=== PATIENT | male | born 1935 | race Caucasian/White ===

== ENCOUNTER 2016-09-14 15:21 | Observation (INO) | payer MEDICARE, OTHER ==
[~2016-09-14] VITALS: Ht 172.7 cm; Wt 84.5 kg
[~2016-09-14 15:21] MED LIST: CARV25TA2 PO; CELE200C PO; CEPH500C PO; DIGO125T73 PO; FURO40TA4 PO; KEN1C EXT; LISI10TA PO; MULT-1073 PO; NIAC500T7 PO; NITR0.4T SL; OMEP40CA3 PO; POTA20TA16 PO; PRAM0.5T3 PO; RANI300C PO; SPIR25TA3 PO; TAMS0.4C98 PO; TRAM50TA2 PO; TRIA10.8 NOSTRIL; WARF5TAB7 PO; WARF7.5T4 PO; [UNRECOGNIZED DRUG - CODE] PO; [UNRECOGNIZED DRUG - OTHER] PO
[2016-09-14 15:38] VITALS: BP 84/54; PULSE 106; RESP 28; O2SAT 94
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
[2016-09-14] MEDS ORDERED: CALC600T12 PO (16:00)
[2016-09-14] MEDS ORDERED: CARV3.122 PO (16:00)
[2016-09-14] MEDS ORDERED: OMEP40CA36 PO (16:00)
[2016-09-14 16:29] LABS: EOSINOPHILS % (AUTO) 0.1 % (0-5); Platelet Count 222 bil/L (150-400)
[2016-09-14 16:32] LABS: BASOPHILS % (AUTO) 0.2 % (0-3); Mean Corpuscular Hemoglobin 34.2 pg (27.0-35.0); Mean Corpuscular Volume 100.9 fL (81-100); NEUTROPHILS % (AUTO) 85.9 % (40-74)
[2016-09-14 16:34] LABS: INR 1.25 ratio
[2016-09-14 16:50] LABS: TROPONIN T < 0.010 ug/L (0.0-0.011)
--- NOTE | 2016-09-14 17:17 | DRSVH ---
PROCEDURE: X-RAY CHEST ONE VIEW, PORTABLE ([id number]) INDICATIONS: ?hemoptysis TECHNIQUE: One view of the chest was acquired. COMPARISON: None. FINDINGS: Surgical changes and devices: Single lead pacemaker from a left is present. cardiac monitor technician leads are seen over the chest. There's been previous surgery involving the base of the neck on the left-hand t he central left side of the chest. Lungs and pleura: No pleural effusions or pneumothorax. Lungs are clear. Old scarring changes are p resent at the left costophrenic sulcus. Mediastinum: Mediastinal contours appear normal. Heart size is normal. Bones and chest wall: No suspicious bony lesions. Vertebroplasty is in the upper lumbar spine Overl vanessa soft tissues appear unremarkable. IMPRESSION: Acute disease is now seen in the AP portable chest. Source of hemoptysis is not identifie d. Dictated by: Neeraj Calderon M.D. on 09/14/2016 at 17:12 Approved by: Neeraj Calderon M.D. on 09/14/2016 at 17:15
--- NOTE | 2016-09-14 17:38 | DRSVH ---
PROCEDURE: CT ANGIO CHEST PULMONARY EMBOLISM ([id number]) INDICATIONS: hemoptysis TECHNIQUE: After the administration of intravenous contrast, 2 mm thick sections acquired from the pulmonary api larry to the posterior costophrenic angles. 3-dimensional maximum intensity projection (MIP) coronal a nd sagittal reformats were then acquired through the thorax. For radiation dose reduction, the follo wing was used: automated exposure control, adjustment of mA and/or kV according to patient size. COMPARISON: [facility], , CHEST 1VW (PORTABLE), 07/20/2014, 2:12. FINDINGS: Image quality: Excellent. Pulmonary arteries: Pulmonary arteries are normal in size, and demonstrate no intraluminal filling d efects to suggest central pulmonary embolism. Lungs and pleura: Lungs show small amount of airspace disease posteriorly in the right upper lobe an d atelectasis or small amount of air space disease in the posterior gutter. No pleural effusions or p neumothorax. Central and peripheral airways are patent. Mediastinum: Heart size is diffusely enlarged, without pericardial effusion. No mediastinal or alex r adenopathy. Thoracic aorta is normal in caliber and enhancement. Esophagus is normal in caliber, without hiatal hernia. Bones and chest wall: Pacemaker in the left upper chest. No suspicious bony lesions. Ribs and thorac ic spine appear intact throughout. . No axillary or supraclavicular adenopathy. Abdomen: Visualized upper abdominal solid organs appear normal in the early arterial phase of enhanc ement. There is a small to moderate-sized hiatal hernia. IMPRESSION: 1. No evidence for pulmonary embolus. 2. Air space disease in the right upper lobe. No evidence for m ass or embolus or endobronchial lesion. Question small amount of airspace disease or subsegmental ate lectasis in the posterior gutter inferiorly in the right chest. 2. Large heart without failure. Pacemaker in the left chest. 3. Small to moderate size hiatal hernia. Dictated by: Neeraj Calderon M.D. on 09/14/2016 at 17:29 Approved by: Neeraj Calderon M.D. on 09/14/2016 at 17:36
[2016-09-14 17:51] VITALS: BP 100/60; PULSE 75; RESP 21; O2SAT 96
[2016-09-14] MEDS ORDERED: cefTRIAXone Inj 2,000 MG in Dextrose 5% Minibag Plus 50 ML IV ONE (17:55)
[2016-09-14] MEDS ORDERED: Azithromycin Inj 500 MG in Dextrose 5% w/Vial Mate 250 ML IV ONE (17:55)
[2016-09-14] MEDS ORDERED: 0.9% Sodium Chloride 1,000 ML IV ONE (17:55)
[2016-09-14] MEDS ORDERED: Alum-Mag Hydrox-Simeth 30 mL Suspension PO PRN (18:35)
[2016-09-14] MEDS ORDERED: Ondansetron 2 mg/mL 2 mL Inj IVPUSH PRN (18:35)
[2016-09-14 19:05] VITALS: PULSE 79
[2016-09-14 19:20] VITALS: BP 103/69; PULSE 87; RESP 12; O2SAT 96
[2016-09-14] MEDS: 0.9% Sodium Chloride 1,000 ML IV SCH (19:23)
[2016-09-14] MEDS: Lactated Ringer's 1,000 ML IV SCH (19:26)
[2016-09-14] MEDS ORDERED: Albuterol 2.5 mg/3 mL Inhalation Solution NEB PRN (19:30)
[2016-09-14] MEDS ORDERED: Polyethylene Glycol (PEG) 17 Gm Powder PO PRN (19:30)
[2016-09-14 20:00] VITALS: PULSE 86
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
[2016-09-14] MEDS: Albuterol-Ipratropium 3 mL Inhalation Solution NEB SCH ×2 (20:30→23:24)
[2016-09-14] MEDS ORDERED: levoFLOXacin Inj 750 MG in IV Premix 1 EACH IV SCH (20:30)
[2016-09-14] MEDS: Potassium Chloride 20 mEq SR Tablet PO SCH (20:30)
--- NOTE | 2016-09-14 22:10 | NUR ---
Admit, activity and IV fluids. Patient was admitted to the [facility] shortly before the start of my shift. Admission process was completed and patient was settled into bed. Patient reports that he feels weaker than normal. Patient is a one person assist to use the bedside commode. Fall precautions are in place. Patient is running NS at 100ml/hr and is tolerating the fluids well. Patient is having good urine output.
[2016-09-14 23:34] VITALS: BP 124/78; PULSE 74; RESP 20; O2SAT 94
[2016-09-14 23:50] LABS: APPEARANCE,URINE CLEAR (CLEAR,HAZY); COLOR,URINE DARK YELLOW (YELLOW); OCCULT BLOOD,URINE NEGATIVE (NEGATIVE)
[2016-09-15] VITALS (12 sets, daily range): BP systolic 107–132; BP diastolic 57–77; PULSE 65–115; RESP 16–20; O2SAT 93–98
[2016-09-15 02:43] LABS: BASOPHILS % (AUTO) 0.3 % (0-3); EOSINOPHILS % (AUTO) 0.8 % (0-5); MONOCYTES % (AUTO) 8.4 % (4-12); Mean Corpuscular Hemoglobin 34.2 pg (27.0-35.0); NEUTROPHILS % (AUTO) 82.3 % (40-74); Platelet Count 214 bil/L (150-400)
[2016-09-15] MEDS: Albuterol-Ipratropium 3 mL Inhalation Solution NEB SCH ×5 (04:30→20:30)
[2016-09-15] MEDS: Lactated Ringer's 1,000 ML IV SCH (04:58)
[2016-09-15] MEDS: 0.9% Sodium Chloride 1,000 ML IV SCH (04:59)
[2016-09-15] MEDS: Pantoprazole 40 mg ER24 Tablet PO SCH (05:57)
[2016-09-15] MEDS: Fluticasone 0.05% 15 Spray/2 Gm 16 Gm Nasal Spray NASAL SCH (08:30)
[2016-09-15] MEDS ORDERED: Non-Formulary Medication (Ranitidine 300 MG) PO SCH (08:30)
--- NOTE | 2016-09-15 08:45 | NUR ---
Evaluation completed. Please go to "Notes" then click on "Assessments and Notes" (bottom left corner of screen). Then select appropriate discipline tab on top of screen.
[2016-09-15] MEDS: Potassium Chloride 20 mEq SR Tablet PO SCH ×2 (09:07→20:31)
[2016-09-15] MEDS: Calcium Carbonate (Oyster Shell) 500 mg Tablet PO SCH (09:07)
--- NOTE | 2016-09-15 10:17 | DRSVH ---
PROCEDURE: X-RAY CHEST ONE VIEW, PORTABLE ([id number]) INDICATIONS: dyspnea TECHNIQUE: One view of the chest was acquired. COMPARISON: [facility], CR, XR CHEST 1VW (PORTABLE), 09/14/2016, 16:24. [facility], CT, CT ANGIO CHEST PE, 09/14/2016, 17:11. FINDINGS: Surgical changes and devices: Stable position left chest AICD. Left hilar and superior mediastinal s urgical clips. Lungs and pleura: No pleural effusions or pneumothorax. Right upper lobe airspace opacity present similar to recent CT scan otherwise lungs are clear, aside from mild scarring at the left lung base. Mediastinum: Mediastinal contours appear normal. Heart size is normal. Bones and chest wall: No suspicious bony lesions. Overlying soft tissues appear unremarkable. IMPRESSION: 1. Right upper lobe patchy airspace opacity similar to prior examination consistent with aspiration o r pneumonia. Dictated by: Santosh MONSALVE Interpreted: Jasen Hewitt MD on 09/15/2016 at 9:59 Transcribed by: JOSE on 09/15/2016 at 10:16 Approved by: Rafa Hewitt M.D. on 09/15/2016 at 14:37
--- NOTE | 2016-09-15 11:28 | PCM.PNMED ---
Subjective Date of Service Sep 15, 2016 Subjective This is a 81-year-old male, chronically ill with congestive heart failure/ atrial fibrillation, who developed a gastrointestinal syndrome about 5 days ago with vomiting and diarrhea. He continues to have rust-colored sputum with his cough this morning. There is no bright, red blood or pink frothy sputum. He feels short of breath. He does not have chest pain. He had diarrhea last week and then one episode of dark stools but now has not had a bowel movement for 5 days. He did have vomiting with pink tinged emesis. No bright red blood or coffee ground emesis. He has a history of hemorrhoids. He has a history of heartburn symptoms but it has not been an issue for months. He had weight loss previously when he was diagnosed with heart failure. He does not have night sweats. He has not traveled outside of the country since 1950s when he was in [place] and [place]. Drove from [place], [place] on Thursday and now bilateral leg pain. He has trace ankle edema. He also has chronic low back pain with radiculopathy into his right calf. He reported a hallucination of a man standing at the end of his bed laughing at him immediately upon waking up from a nap today. He has had hallucinations before. 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 She reports that initially his cough produced santiago, bright red blood in his sputum. Exam Vital Signs Vital Sign - Last Date Time Temp Pulse Resp B/P Pulse Ox O2 Delivery O2 Flow Rate FiO2 09/15/16 08:24 107 16 95 Room Air 09/15/16 07:59 36.9 132/77 Intake and Output 09/14/16 09/14/16 09/15/16 Cumulative From/Thru 15:00 23:00 07:00 09/14/16 15:38 - 09/15/16 06:14 Intake Total 1914 ml 1914 ml Output Total 1050 ml 1050 ml Balance 864 ml 864 ml Intake Oral 0 ml 0 ml IV Total 1914 ml 1914 ml Output Urine Total 1050 ml 1050 ml # Voids 3 3 Exam General: Alert and oriented 3, no apparent distress HEENT: Pupils are equally round and reactive to light and accommodation. Extraocular muscles are intact. Sclera are pink and nonicteric. Throat looks normal. Neck: No lymph nodes are felt head, neck, supraclavicular area. No thyromegaly. JVD is less than 6 cm. No carotid bruits are heard. Cardiovascular: Heart is regular rate and rhythm without murmur or signs of atrial fibrillation. Lungs: Clear to auscultation bilaterally. No rale, rhonchi, or wheezing. Abdomen: Soft, nontender, no organomegaly. Extremities: Trace bilateral ankle edema. Negative Yris's sign on the left. Skin: No rash or jaundice. Neurologic: Reflexes are normal. There is no tremor. Motor function is 5/5 throughout. Nerves II through XII tested intact. Psych: Normal mood and affect. IVs and Medications Medications Reviewed: Medications were reviewed in detail Lab and Diagnostics Result Diagram: 09/15/1621509/15/16215 X-Rays, CTs and MRIs CT ANGIO CHEST PULMONARY EMBOLISM ([id number]) INDICATIONS: hemoptysis TECHNIQUE: After the administration of intravenous contrast, 2 mm thick sections acquired from the pulmonary apices to the posterior costophrenic angles. 3-dimensional maximum intensity projection (MIP) coronal and sagittal reformats were then acquired through the thorax. For radiation dose reduction, the following was used: automated exposure control, adjustment of mA and/or kV according to patient size. COMPARISON: [facility], , CHEST 1VW (PORTABLE), 07/20/2014, 2:12. FINDINGS: Image quality: Excellent. Pulmonary arteries: Pulmonary arteries are normal in size, and demonstrate no intraluminal filling defects to suggest central pulmonary embolism. Lungs and pleura: Lungs show small amount of airspace disease posteriorly in the right upper lobe and atelectasis or small amount of air space disease in the posterior gutter. No pleural effusions or pneumothorax. Central and peripheral airways are patent. Mediastinum: Heart size is diffusely enlarged, without pericardial effusion. No mediastinal or hilar adenopathy. Thoracic aorta is normal in caliber and enhancement. Esophagus is normal in caliber, without hiatal hernia. Bones and chest wall: Pacemaker in the left upper chest. No suspicious bony lesions. Ribs and thoracic spine appear intact throughout. . No axillary or supraclavicular adenopathy. Abdomen: Visualized upper abdominal solid organs appear normal in the early arterial phase of enhancement. There is a small to moderate-sized hiatal hernia. IMPRESSION: 1. No evidence for pulmonary embolus. 2. Air space disease in the right upper lobe. No evidence for mass or embolus or endobronchial lesion. Question small amount of airspace disease or subsegmental atelectasis in the posterior gutter inferiorly in the right chest. 2. Large heart without failure. Pacemaker in the left chest. 3. Small to moderate size hiatal hernia. Dictated by: Neeraj Calderon M.D Additional Diagnostics X-RAY CHEST ONE VIEW, PORTABLE ([id number]) IMPRESSION: Acute disease is now seen in the AP portable chest. Source of hemoptysis is not identified. Approved by: Neeraj Calderon M.D. on 09/14/2016 at 17:15 ADDENDUM: The impression should read acute disease is not seen an AP portable chest. Dictated by: Neeraj Calderon M.D. PROCEDURE: CT ANGIO CHEST PULMONARY EMBOLISM ([id number]) IMPRESSION: 1. No evidence for pulmonary embolus. 2. Air space disease in the right upper lobe. No evidence for mass or embolus or endobronchial lesion. Question small amount of airspace disease or subsegmental atelectasis in the posterior gutter inferiorly in the right chest. 2. Large heart without failure. Pacemaker in the left chest. 3. Small to moderate size hiatal hernia. Approved by: Neeraj Calderon M.D. on 09/14/2016 at 17:36 PROCEDURE: X-RAY CHEST ONE VIEW, PORTABLE IMPRESSION: 1. Right upper lobe patchy airspace opacity similar to prior examination consistent with aspiration or pneumonia. Approved by: Rafa Hewitt M.D. on 09/15/2016 at 14:37 Assessment & Plan 1. Community acquired pneumonia, acute, present on admission. Active. -WBC elevated initially 14.1, increased to 15.4 today -CXR shows right upper lobe airway disease -Strep. pneumoniae urine antigen and legionella urine antigen negative -Received 1 dose of IV ceftriaxone in the emergency department -Began IV levofloxacin yesterday as patient was NPO and now switched to PO levofloxacin 750 mg daily -Use oxygen as indicated. 2. Hemoptysis, acute, present on admission. Active. -Differential diagnosis includes but not limited to: tuberculosis, community acquired pneumonia, valvular heart disease, bronchiectasis, pulmonary embolism, lung malignancy or hematemesis confused for hemoptysis -No signs of pulmonary embolus or pulmonary mass to explain this phenomenon on CT scan -The findings of pneumonia are quite subtle and only seen on CT scan but are likely the cause of the hemoptysis. -We will repeat chest x-ray in the morning and continue to follow this issue. Pneumonia may become more evident with gentle IV hydration tonight -No Lovenox for now and holding Coumadin. -Quantiferon gold pending -AFB sputum culture today pending -Isolation precautions 3. Chronic systolic congestive heart failure, present on admission. -EF 20-25% in 04/2015 -Continue digoxin, carvedilol, Lasix, lisinopril, potassium chloride, and Aldactone. -Repeat metabolic panel in the morning -Stop IV hydration 4. Chronic Atrial Fibrillation, present on admission. -Resume Coumadin in a day or 2 assuming the hemoptysis does not recur and the pneumonia is effectively treated. 5. Possible acute melena, present on admission. -Patient has a hiatal hernia and history of Herrera's esophagus -Possible cause of #2 above if patient is really vomiting blood then coughing -Pantoprazole 40 mg once daily -Guaiac monitoring -Hold home Celebrex for now 6. Constipation -Bowel regimen 7. Bilateral leg pain, acute on chronic, present on admission. -He has chronic right leg pain -CT chest angio PE did not show PE -He was on warfarin prior to admission to hospital -Continue to monitor and consider an US venous duplex bilateral tomorrow if it continues and continued concern for DVT 8. BPH -Continue home dose of Flomax. 9. DJD -Hold home Celebrex for now -APAP as needed for pain 10. RLS -Continue Mirapex. 11. Hallucination -No focal neurological deficits and patient is AAOx3. The patient had the hallucination upon awakening. He reports hallucinations in his past. -Continue to monitor -Compression stockings for DVT prevention. -No anticoagulation at this time. obs status ,possible discharge in am Disposition: Possible discharge home tomorrow if improvement of hemoptysis and no melena for outpatient GI work-up. VTE Mechanical Devices: Intermittant Pneumatic CD Resuscitation Status: CPR: Attempt Resuscitation Attending Statement The patient was seen and examined together with Dr. Choudhury on 09/15/2016 and I agree with the history, exam and plan as outlined in the note above. . Sandhya Choudhury DO Sep 15, 2016 08:30 Manoj Yates MD Sep 15, 2016 19:24
[2016-09-15] MEDS: levoFLOXacin 750 mg Tablet PO SCH (13:53)
--- NOTE | 2016-09-15 16:28 | NUR ---
Social Work Note: Attempted Initial Assessment Data& Assessment: SW attempted to meet with pt at bedside to complete initial Assessment. Pt declined and requested SW return during a time when his is at bedside so she can answer the questions for him. SW agreed to return tomorrow to complete assessment with pt and pt at bedside. SW to continue to follow. Plan: SW to follow up with pt and pt at bedside to complete initial assessment. SW to continue to follow. ANTONIO Rubio
--- NOTE | 2016-09-15 19:35 | NUR ---
Leg Pain/Hallucination/Constipation Cardiac: Pt denies CP. Tele: Afib 100-110. Pt reports he has had pain in his legs since driving back home from [place] on Friday 09/08. A decrease in leg strength accompanied this pain. Dr Clark. Resp: Pt denies SOB, SPO2 98% on RA. Sputum sent, one still needs collecting. GI/: Pt denies n/v/d, reports he has not had a BM since 09/11/16. Discussed bowel med options with pt and gave dose of mirilax. Pt is incontinent of urine at times and has a history of it. Neuro: A&Ox3, forgetful at times. Pt reported that he had a hallucination of a man in his room, no changes in neuro assessment, Dr Macey clark.
[2016-09-16 02:01] VITALS: PULSE 117; RESP 18; O2SAT 94
[2016-09-16] MEDS: Albuterol-Ipratropium 3 mL Inhalation Solution NEB SCH ×2 (02:01→05:18)
[2016-09-16 03:01] VITALS: BP 98/53; PULSE 79; RESP 20; O2SAT 95
[2016-09-16 03:40] LABS: BASOPHILS % (AUTO) 0.1 % (0-3); EOSINOPHILS % (AUTO) 0.7 % (0-5); MONOCYTES % (AUTO) 9.3 % (4-12); Mean Corpuscular Hemoglobin 33.8 pg (27.0-35.0); Mean Corpuscular Volume 100.3 fL (81-100); NEUTROPHILS % (AUTO) 83.1 % (40-74); Platelet Count 199 bil/L (150-400)
[2016-09-16 04:05] LABS: ERYTHROCYTE SEDIMENTATION RATE 10 mm/hr (0-30)
--- NOTE | 2016-09-16 04:33 | NUR ---
neuro/sputum pt remains weak. 1person max assist to transfer to BSC or chair. Pt was retchingx2 when trying to sit up in the beginning of shift. VSS. Pt tolerated sitting up in the chair at this time w/o N/V to relieved his back pain from laying in bed. no hallucinations noted. forgets to use call light sometimes. bed alarm on. \ sputum sent this AM to the lab; red specks noted. SpO2 mid 90s on RA.
[2016-09-16 05:18] VITALS: PULSE 91; RESP 18; O2SAT 94
[2016-09-16 08:18] VITALS: BP 118/78; PULSE 87; RESP 18; O2SAT 96
[2016-09-16] MEDS: levoFLOXacin 750 mg Tablet PO SCH (08:26)
[2016-09-16] MEDS: Calcium Carbonate (Oyster Shell) 500 mg Tablet PO SCH (08:27)
[2016-09-16] MEDS: Fluticasone 0.05% 15 Spray/2 Gm 16 Gm Nasal Spray NASAL SCH (08:27)
[2016-09-16] MEDS: Pantoprazole 40 mg ER24 Tablet PO SCH (08:27)
[2016-09-16] MEDS: Potassium Chloride 20 mEq SR Tablet PO SCH (08:28)
--- NOTE | 2016-09-16 10:20 | NUR ---
Case Management: FIERRO and part D Medication pamphlet delivered and explained to Beatris Goldsmith, pt. spouse; per Pt. request. Rina Hilton RN
[2016-09-16] MEDS ORDERED: AMOX-366 PO (10:38)
--- NOTE | 2016-09-16 10:45 | PCM.DIMED ---
Sandhya Choudhury DO 09/16/16 1045: Discharge Instructions Date of Service Sep 16, 2016 Dates of Hospitalization Sep 14, 2016 at 17:48 Discharge Diagnosis Discharge Diagnosis 1. Community acquired pneumonia 2. Hemoptysis 3. Chronic systolic congestive heart failure 4. Chronic Atrial Fibrillation 5. Possible acute melena 6. Constipation 7. Bilateral leg pain 8. BPH 9. DJD 10. RLS 11. Hallucination Diet Heart Healthy Activity Limited until seen by PCP Call your provider Fever or Chills, Shortness of breath, Bleeding, Chest pain, Excessive diarrhea Patient Instructions Continue all of your medications as previously prescribed. Take Augmentin twice per day for 5 days. Be careful to watch for signs of bleeding and have your PT/INR monitored in 3-4 days. You should also take probiotics, such as yogurt or sauerkraut, during the antibiotic course. Follow up with primary care provider within 1 week. If your cough continues to have blood in it or the amount of blood worsens or you notice bright, red blood in your stools or dark, tarry stools, then seek medical attention. Follow-up Provider: Ramses Greene MD Follow-up with PCP in: 1 week Manoj Yates MD 09/16/16 1206: Discharge Instructions Attending's Statement The patient was seen and examined together with Dr. Choudhury on 09/16/2016 and I agree with the instructions and plan as outlined in the note above. Sandhya Choudhury DO Sep 16, 2016 10:45 Manoj Yates MD Sep 16, 2016 12:06
[2016-09-16 10:52] VITALS: PULSE 91
--- NOTE | 2016-09-16 16:12 | NUR ---
Social Work Note: Initial Assessment/Discharge Data& Assessment: EMR reviewed. Per pt is medically improved and ready to discharge home via POV. SW met with pt and pt at bedside to discuss discharge plan and confirm discharge plan, SW role explained. Jm Goldsmith is a 81 year old male admitted on 09/14/2016 for hemopysis and anticoagulation. Per pt is medically improved and ready for discharge. Pt has [employer] and [employer] supplement. Pt sees Ruben Greene MD for primary care. Pt lives in [place] with his spouse in a one story home and is independent at baseline. Pt only uses a large walking stick/cane for ambulation assistance. Pt drives. Pt denies HH or SNF hx. Pt is a , but not service connected. Pt does have LTC insurance through his former employer. Pt had DPOA/Advanced Directive paperwork at home, SW requested a copy when possible. Pt transporting pt home today. Pt and pt deny any other needs. No other discharge needs identified. Plan: Per pt is medically improved and ready to discharge home via POV. Pt transporting pt home today. Pt and pt deny any other needs. No other discharge needs identified. All updated and agreeable to plan. ANTONIO Rubio Addendum: 09/16/16 at 1616 by ELLE WELDON Amended: Links added.
--- NOTE | 2016-09-16 16:31 | NUR ---
Discharge Patient has had no further hemoptysis. VSS. Discharge instructions printed and reviewed verbally with patient. Paper Rx for antibiotic given and reviewed for patient. All questions answered. Patient left unt via WC accompanied by his and discharged home via personal vehicle.
--- NOTE | 2016-09-16 18:59 | PCM.DC.MED ---
Discharge Summary Date of Service Sep 16, 2016 Dates of Hospitalization Date of Hospital Admission Sep 14, 2016 at 17:48 Date of Discharge: Sep 16, 2016 Providers: Admitting Physician: Radha Suggs MD Primary Care Physician: Ramses Greene MD Attending Physician: Radha Suggs MD Diagnosis at Time of Discharge Diagnosis at Time of Discharge 1. Community acquired pneumonia 2. Hemoptysis 3. Chronic systolic congestive heart failure 4. Chronic Atrial Fibrillation 5. Possible acute melena 6. Constipation 7. Bilateral leg pain 8. BPH 9. DJD 10. RLS 11. Hallucination Procedures XRay, CTs & MRIs CT ANGIO CHEST PULMONARY EMBOLISM ([id number]) INDICATIONS: hemoptysis TECHNIQUE: After the administration of intravenous contrast, 2 mm thick sections acquired from the pulmonary apices to the posterior costophrenic angles. 3-dimensional maximum intensity projection (MIP) coronal and sagittal reformats were then acquired through the thorax. For radiation dose reduction, the following was used: automated exposure control, adjustment of mA and/or kV according to patient size. COMPARISON: [facility], , CHEST 1VW (PORTABLE), 07/20/2014, 2:12. FINDINGS: Image quality: Excellent. Pulmonary arteries: Pulmonary arteries are normal in size, and demonstrate no intraluminal filling defects to suggest central pulmonary embolism. Lungs and pleura: Lungs show small amount of airspace disease posteriorly in the right upper lobe and atelectasis or small amount of air space disease in the posterior gutter. No pleural effusions or pneumothorax. Central and peripheral airways are patent. Mediastinum: Heart size is diffusely enlarged, without pericardial effusion. No mediastinal or hilar adenopathy. Thoracic aorta is normal in caliber and enhancement. Esophagus is normal in caliber, without hiatal hernia. Bones and chest wall: Pacemaker in the left upper chest. No suspicious bony lesions. Ribs and thoracic spine appear intact throughout. . No axillary or supraclavicular adenopathy. Abdomen: Visualized upper abdominal solid organs appear normal in the early arterial phase of enhancement. There is a small to moderate-sized hiatal hernia. IMPRESSION: 1. No evidence for pulmonary embolus. 2. Air space disease in the right upper lobe. No evidence for mass or embolus or endobronchial lesion. Question small amount of airspace disease or subsegmental atelectasis in the posterior gutter inferiorly in the right chest. 2. Large heart without failure. Pacemaker in the left chest. 3. Small to moderate size hiatal hernia. Dictated by: Neeraj Calderon M.D [facility] X-RAY CHEST ONE VIEW, PORTABLE ([id number]) IMPRESSION: Acute disease is now seen in the AP portable chest. Source of hemoptysis is not identified. Approved by: Neeraj Calderon M.D. on 09/14/2016 at 17:15 ADDENDUM: The impression should read acute disease is not seen an AP portable chest. Dictated by: Neeraj Calderon M.D. PROCEDURE: CT ANGIO CHEST PULMONARY EMBOLISM ([id number]) IMPRESSION: 1. No evidence for pulmonary embolus. 2. Air space disease in the right upper lobe. No evidence for mass or embolus or endobronchial lesion. Question small amount of airspace disease or subsegmental atelectasis in the posterior gutter inferiorly in the right chest. 2. Large heart without failure. Pacemaker in the left chest. 3. Small to moderate size hiatal hernia. Approved by: Neeraj Calderon M.D. on 09/14/2016 at 17:36 PROCEDURE: X-RAY CHEST ONE VIEW, PORTABLE IMPRESSION: 1. Right upper lobe patchy airspace opacity similar to prior examination consistent with aspiration or pneumonia. Approved by: Rafa Hewitt M.D. on 09/15/2016 at 14:37 Brief History as per HPI This is a 81-year-old male, chronically ill with CHF/atrial fibrillation, who developed a GI syndrome about 5 days ago with vomiting and diarrhea. That subsequently resolved but 4 days ago he began coughing. Last night at 1 AM he noticed bloody sputum, and that repeated one more time overnight. He presents now with fatigue, weakness and continuing coughing. His chest CT suggests right upper lobe airspace disease despite chest x-ray being negative for pneumonia. He has had no recurrence of the hemoptysis during the day today. He had hemoptysis one time many many years ago but has had nothing recently. His INR is not elevated. There has been no hematemesis or bloody stool. There has been no fevers, chest pain, chills or hypoxia. On a larger level he reports 6 months of progressive fatigue, lack of energy which he says has been blamed on his progressive CHF by the various doctors he has seen so far. Hospital Course 1. Community acquired pneumonia, acute, present on admission. Active. -WBC elevated initially 14.1, increased to 15.4 today -CXR shows right upper lobe airway disease -Strep. pneumoniae urine antigen and legionella urine antigen negative -Received 1 dose of IV ceftriaxone in the emergency department -treated with levofloxacin 750 mg daily.discharge on po augmentin for 5 more days 2. Hemoptysis due to CAP, acute, present on admission. Active. -Differential diagnosis includes but not limited to: tuberculosis, community acquired pneumonia, valvular heart disease, bronchiectasis, pulmonary embolism, lung malignancy or hematemesis confused for hemoptysis -No signs of pulmonary embolus or pulmonary mass to explain this phenomenon on CT scan -The findings of pneumonia are quite subtle and only seen on CT scan but are likely the cause of the hemoptysis. -Quantiferon gold pending -AFB sputum culture today pending -ESR 10,no B symptoms ,TB very unlikley. -hemoptysis improving,will resume warfarin up on discharge.follow up with PCp closely 3. Chronic systolic congestive heart failure, present on admission. -EF 20-25% in 04/2015 -Continue digoxin, carvedilol, Lasix, lisinopril, potassium chloride, and Aldactone. 4. Chronic Atrial Fibrillation, present on admission. -Resume Coumadin 5. Possible acute melena, present on admission. -Patient has a hiatal hernia and history of Herrera's esophagus -Possible cause of #2 above if patient is really vomiting blood then coughing -Pantoprazole 40 mg once daily 6. Constipation -Bowel regimen 7. Bilateral leg pain, acute on chronic, present on admission. -He has chronic right leg pain -CT chest angio PE did not show PE 8. BPH -Continue home dose of Flomax. 9. DJD -Hold home Celebrex for now -APAP as needed for pain 10. RLS -Continue Mirapex. 11. Hallucination,resolved -No focal neurological deficits and patient is AAOx3. The patient had the hallucination upon awakening. He reports hallucinations in his past. -Continue to monitor,outpt f/u discharge home on po augmentin,resume AC f/u with PCP Exam Vital Signs (Last) Date Time Temp Pulse Resp B/P Pulse Ox O2 Delivery O2 Flow Rate FiO2 09/16/16 10:52 91 09/16/16 08:18 36.7 18 118/78 96 Room Air Exam General: Alert and oriented 3, no apparent distress HEENT: Pupils are equally round and reactive to light and accommodation. Extraocular muscles are intact. Sclera are pink and nonicteric. Throat looks normal. Neck: No lymph nodes are felt head, neck, supraclavicular area. No thyromegaly. JVD is less than 6 cm. No carotid bruits are heard. Cardiovascular: Heart is regular rate and rhythm without murmur or signs of atrial fibrillation. Lungs: Clear to auscultation bilaterally. No rale, rhonchi, or wheezing. Abdomen: Soft, nontender, no organomegaly. Extremities: Trace bilateral ankle edema. Negative Yris's sign on the left. Skin: No rash or jaundice. Neurologic: Reflexes are normal. There is no tremor. Motor function is 5/5 throughout. Nerves II through XII tested intact. Psych: Normal mood and affect. Test 09/14/16 16:07 09/14/16 17:40 09/14/16 23:31 09/14/16 23:36 Prothrombin Time 13.4sec (8.1-12.5) Prothromb Time International Ratio 1.25ratio Troponin T < 0.010ug/L (0.0-0.011) Digoxin Level 0.4nG/mL (0.9-2.0) Lactic Acid Level 1.0mmol/L (0.4-2.0) Urine Legionella pneumophilia Ag Negative (Negative) Urine Color Dark yellow (YELLOW) Urine Appearance Clear (CLEAR,HAZY) Urine pH 6.0 (5.0-8.0) Urine Specific [place] 1.020 (1.003-1.035) Urine Protein Negativemg/dL (NEG,TRACE) Urine Glucose (UA) Negativemg/dL (NEGATIVE) Urine Ketones Negativemg/dL (NEGATIVE) Urine Occult Blood Negative (NEGATIVE) Urine Nitrite Negative (NEGATIVE) Urine Bilirubin Negative (NEGATIVE) Urine Urobilinogen 2.0mg/dL (NORMAL) Urine Leukocyte Esterase Negative (NEGATIVE) Urine RBC 0-2/hpf (0-2) Urine WBC 0-5/hpf (0-5) Urine Epithelial Cells Few/hpf (NONE-MOD) Urine Crystals None seen (NONE SEEN) Urine Bacteria None/hpf (NONE-FEW) Urine Hyaline Casts Rare/lpf (NONE) Urine Granular Casts None seen (NONE SEEN) Urine Waxy Casts None seen (NONE SEEN) Urine Red Blood Cell Casts None seen (NONE SEEN) Urine White Blood Cell Casts None seen (NONE SEEN) Urine Mucus None seen (None Seen) Urine Trichomonas None seen (NONE SEEN) Urine Yeast None (NONE SEEN) Urine Culture Reflexed Not indicated Test 09/15/16 02:16 09/15/16 09:45 09/16/16 03:10 Procalcitonin 0.11ng/mL (0.00-0.08) Hold [place] Top Tube Received (Received) White Blood Count 16.9th/mm3 (3.8-10.1) Red Blood Count 3.91mil/mm3 (4.40-5.80) Hemoglobin 13.2g/dL (13.8-17.2) Hematocrit 39.2% (41.0-50.0) Mean Corpuscular Volume 100.3fL (81-100) Mean Corpuscular Hemoglobin 33.8pg (27.0-35.0) Mean Corpuscular Hemoglobin Concent 33.7% (32.0-37.0) Red Cell Distribution Width 14.5% (12.3-15.4) Platelet Count 199bil/L (150-400) Neutrophils (%) (Auto) 83.1% (40-74) Lymphocytes (%) (Auto) 6.4% (14-46) Monocytes (%) (Auto) 9.3% (4-12) Eosinophils (%) (Auto) 0.7% (0-5) Basophils (%) (Auto) 0.1% (0-3) Erythrocyte Sedimentation Rate 10mm/hr (0-30) Sodium Level 138mEq/L (134-144) Potassium Level 4.3mEq/L (3.5-5.2) Chloride Level 103mEq/L (97-108) Carbon Dioxide Level 25mmol/L (18-29) Blood Urea Nitrogen 12mg/dL (8-27) Creatinine 0.93mg/dL (0.76-1.27) Estimat Glomerular Filtration Rate 83mL/min (>59) Glucose Level 126mg/dL (60-99) Calcium Level 8.4mg/dL (8.5-10.1) Total Bilirubin 0.6mg/dL (0.0-1.2) Aspartate Amino Transf (AST/SGOT) 18U/L (0-50) Alanine Aminotransferase (ALT/SGPT) 15U/L (0-44) Alkaline Phosphatase 74U/L (25-160) Total Protein 5.8g/dL (6.4-8.4) Albumin 3.0g/dL (3.4-5.0) Discharge Medications Discharge Medications Amoxicillin/Clav K 875-125 mg (Augmentin 875-125 mg) 1 Each Tablet 1 TABLET PO BID Prescribed by: LOGAN CHOUDHURY DO Calcium Carbonate (Calcium) 600 Mg Tablet 1,200 MG PO DAILY (Reported) Carvedilol (Carvedilol) 3.125 Mg Tablet 3.125 MG PO QID (Reported) Celecoxib (Celebrex) 200 Mg Capsule 200 MG PO DAILY (Reported) Digoxin (Digoxin) 125 Mcg Tablet 125 MCG PO DAILY (Reported) Furosemide (Furosemide) 40 Mg Tablet 40 MG PO DAILY Prescribed by: MARIA LUISA BREWER MD Lisinopril (Lisinopril) 10 Mg Tablet 10 MG PO DAILY (Reported) Multivits-Min/FA/Lycopene/Lut (Centrum Silver Tablet) 1 Each Tablet 1 EACH PO DAILY (Reported) Omeprazole (Omeprazole) 40 Mg Capsule.dr 40 MG PO DAILY (Reported) Potassium Chloride (Potassium Chloride) 20 Meq Tab.er.prt 20 MEQ PO BID ( Reported) TAKE WITH FOOD Pramipexole Dihydrochloride (Mirapex) 0.5 Mg Tablet 0.5 MG PO HS (Reported) Ranitidine (Ranitidine) 300 Mg Capsule 300 MG PO DAILY (Reported) Spironolactone (Spironolactone) 25 Mg Tablet 25 MG PO DAILY (Reported) Tamsulosin (Flomax) 0.4 Mg Capsule 0.4 MG PO DAILY (Reported) Triamcinolone Acetonide (Nasacort) 10.8 Ml [place] 1 SPRAY NOSTRIL DAILY (Reported ) Warfarin Sodium (Warfarin Sodium) 5 Mg Tablet 5 MG PO DAILY (Reported) As needed Nitroglycerin SL (Nitrostat) 0.4 Mg Tab.subl 0.4 MG SL Q5MIN PRN PRN For Chest Pain (Reported) Followup Plan Disposition: home Follow-up plan follow up with PCP Discharge Diet: Heart Healthy Discharge Activity: Limited until seen by PCP Patient Instructions Continue all of your medications as previously prescribed. Take Augmentin twice per day for 5 days. Be careful to watch for signs of bleeding and have your PT/INR monitored in 3-4 days. You should also take probiotics, such as yogurt or sauerkraut, during the antibiotic course. Follow up with primary care provider within 1 week. If your cough continues to have blood in it or the amount of blood worsens or you notice bright, red blood in your stools or dark, tarry stools, then seek medical attention. Follow-up Provider: Ramses Greene MD Follow-up with PCP in: 1 week Attending Statement The patient was seen and examined together with Dr. Choudhury on 09/15/2016 and I agree with the discharge summary and plan as outlined in the note above. . copies to: Ramses Greene MD, Marissa L DO Sep 16, 2016 14:21 Manoj Yates MD Sep 16, 2016 18:59
== END 2016-09-16 16:15 | disposition home or self-care (01) ==
LOC: SED 15:21 → OBSVTOIN 17:48 → INTOOBSV 17:48 → PCC 17:48
PROVIDERS: ADMIT Family Medicine; ATTEND Family Medicine
DX: J18.9 Pneumonia, unspecified organism (principal); R04.2 Hemoptysis; I50.22 Chronic systolic (congestive) heart failure; I48.2 Chronic atrial fibrillation; K59.00 Constipation, unspecified; N40.0 Benign prostatic hyperplasia without lower urinary tract symptoms; G25.81 Restless legs syndrome; M19.90 Unspecified osteoarthritis, unspecified site; E78.5 Hyperlipidemia, unspecified; I10 Essential (primary) hypertension; K21.9 Gastro-esophageal reflux disease without esophagitis; R44.3 Hallucinations, unspecified; I95.9 Hypotension, unspecified; R79.1 Abnormal coagulation profile; Z87.891 Personal history of nicotine dependence; Z79.01 Long term (current) use of anticoagulants; Z95.0 Presence of cardiac pacemaker
CPT/HCPCS: 36415; 71010; 71275; 80053; 80162; 81000; 82308; 83605; 84484; 85014; 85018; 85025; 85610; 85651; 86403; 86922; 87040; 87070; 87081; 87205; 87206; 87449; 87556; 87798; 92610; 93005; 94640; 94664; 96365; 96367; 99291; G0378; G8996; G8997; G8998; J0456; J0696; J1956; J7030; J7620; Q9967

== ENCOUNTER 2016-12-21 14:10 | Emergency (ER) | payer MEDICARE, OTHER ==
[~2016-12-21] VITALS: Ht 175.3 cm; Wt 84.1 kg
[~2016-12-21 14:10] MED LIST changes: +AMOX-366 PO; +CALC600T12 PO; -CARV25TA2 PO; +CARV3.122 PO; -CEPH500C PO; -KEN1C EXT; -NIAC500T7 PO; -OMEP40CA3 PO; +OMEP40CA36 PO; -TRAM50TA2 PO; -WARF7.5T4 PO; -[UNRECOGNIZED DRUG - CODE] PO; -[UNRECOGNIZED DRUG - OTHER] PO
[2016-12-21 14:14] VITALS: BP 138/69; PULSE 90; RESP 34; O2SAT 96
[2016-12-21 14:53] LABS: BASOPHILS % (AUTO) 0.3 % (0-3); EOSINOPHILS % (AUTO) 0.7 % (0-5); MONOCYTES % (AUTO) 6.4 % (4-12); Mean Corpuscular Hemoglobin 34.5 pg (27.0-35.0); Mean Corpuscular Volume 99.5 fL (81-100); NEUTROPHILS % (AUTO) 75.2 % (40-74); Platelet Count 269 bil/L (150-400)
--- NOTE | 2016-12-21 14:55 | DRSVH ---
PROCEDURE: X-RAY CHEST ONE VIEW, PORTABLE ([id number]) INDICATIONS: CP TECHNIQUE: One view of the chest was acquired. COMPARISON: [facility], CR, XR CHEST 1VW (PORTABLE), 09/15/2016, 8:54. FINDINGS: Surgical changes and devices: Pacemaking device, single lead, surgical clips, and kyphoplasty bone c ement at the thoracolumbar junction all appear stable over time. Lungs and pleura: No pleural effusions or pneumothorax. Lungs are clear. Mediastinum: Mediastinal contours appear normal. Heart size is normal. Bones and chest wall: No suspicious bony lesions. Overlying soft tissues appear unremarkable. IMPRESSION: Source of new chest pain is not found. Postsurgical changes are stable over time. Dictated by: Cuong Villanueva M.D. on 12/21/2016 at 14:53 Approved by: Cuong Villanueva M.D. on 12/21/2016 at 14:53
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
[2016-12-21 15:08] LABS: TROPONIN T < 0.010 ug/L (0.0-0.011)
[2016-12-21 15:58] LABS: INR 1.09 ratio
[2016-12-21 16:10] VITALS: BP 130/76; PULSE 78; RESP 22; O2SAT 98
== END 2016-12-21 16:12 | disposition home or self-care (01) ==
LOC: SED 14:10
DX: T82.198A Other mechanical complication of other cardiac electronic device, initial encounter (principal); I48.91 Unspecified atrial fibrillation; R79.1 Abnormal coagulation profile; W19.XXXA Unspecified fall, initial encounter; Y93.H2 Activity, gardening and landscaping; Y92.007 Garden or yard of unspecified non-institutional (private) residence as the place of occurrence of the external cause; Y99.8 Other external cause status; I11.0 Hypertensive heart disease with heart failure; I50.9 Heart failure, unspecified; K21.9 Gastro-esophageal reflux disease without esophagitis; E78.5 Hyperlipidemia, unspecified; Z79.01 Long term (current) use of anticoagulants; Z87.891 Personal history of nicotine dependence; Z88.5 Allergy status to narcotic agent; Z88.8 Allergy status to other drugs, medicaments and biological substances; Z79.899 Other long term (current) drug therapy

== ENCOUNTER 2017-02-10 00:24 | Day surgery (SDC) | payer MEDICARE, OTHER ==
[2017-02-10] VITALS (16 sets, daily range): BP systolic 133–173; BP diastolic 75–113; PULSE 69–83; RESP 16–20; O2SAT 90–100
[~2017-02-10] VITALS: Ht 170.2 cm; Wt 87.9 kg
[~2017-02-10 00:24] MED LIST changes: -AMOX-366 PO; +ASPI-973 PO; -CARV3.122 PO; +LOPE-147 PO; +METO-272 PO; +TRAM50TA2 PO
[2017-02-10] MEDS ORDERED: Vancomycin Inj 1,000 MG in IV Premix 1 EACH IV SCH (06:30)
[2017-02-10] MEDS ORDERED: 0.9% Sodium Chloride 1,000 ML IV PRN (06:30)
[2017-02-10] MEDS ORDERED: 0.9% Sodium Chloride 1,000 ML IV SCH (06:30)
[2017-02-10] MEDS ORDERED: Vancomycin Inj 1,000 MG in IV Premix 1 EACH IV ONE (06:30)
[2017-02-10 09:54] LABS: Mean Corpuscular Volume 100.9 fL (81-100)
[2017-02-10 09:55] LABS: BASOPHILS % (AUTO) 0.5 % (0-3); EOSINOPHILS % (AUTO) 1.1 % (0-5); MONOCYTES % (AUTO) 6.7 % (4-12); NEUTROPHILS % (AUTO) 75.7 % (40-74); Platelet Count 215 bil/L (150-400)
[2017-02-10 10:03] LABS: INR 1.06 ratio
--- NOTE | 2017-02-10 10:14 | NUR ---
Patient admitted for pacemaker upgrade, av node ablation.Subtherapeutic fingerstick INR 1.[address] Anders in EP lab prior to proceeding with admission.
[2017-02-10] MEDS ORDERED: WARF7.5T4 PO (10:20)
[2017-02-10] MEDS ORDERED: OXYC1TAB24 PO (10:22)
[2017-02-10] MEDS ORDERED: 0.9% Sodium Chloride 250 ML ONE (11:57)
[2017-02-10] MEDS ORDERED: Heparin 10,000 Unit/1,000 mL NS Premix IV ONE ×2 (11:57→15:00)
[2017-02-10] MEDS ORDERED: Water for Injection 50 ML IV ONE (11:58)
[2017-02-10] MEDS ORDERED: Bupivacaine-MPF 0.5% 30 mL Inj ONE (11:58)
[2017-02-10] MEDS ORDERED: Vancomycin 1,000 mg Inj ONE (11:58)
[2017-02-10] MEDS ORDERED: Heparin 1,000 Unit/mL 10 mL Inj ONE ×2 (12:39→15:00)
[2017-02-10] MEDS ORDERED: fentaNYL-PF 50 mCg/mL 2 mL Inj ONE ×2 (13:46→14:34)
[2017-02-10] MEDS ORDERED: 0.9% Sodium Chloride 2,000 ML ONE (15:00)
[2017-02-10] MEDS ORDERED: Ondansetron 2 mg/mL 2 mL Inj IVPUSH PRN (17:15)
--- NOTE | 2017-02-10 18:01 | DRSVH ---
PROCEDURE: X-RAY CHEST ONE VIEW, PORTABLE ([id number]) INDICATIONS: For new leads placed TECHNIQUE: One view of the chest was acquired. COMPARISON: [facility], CR, XR CHEST 1VW (PORTABLE), 12/21/2016, 14:12. FINDINGS: Surgical changes and devices: Multiple vascular clips are seen overlying the chest and left hemithora x. None. The pacemaker is in the left chest and there 2 leads now present Lungs and pleura: No pleural effusions or pneumothorax. Slime are slightly plump and indistinct as ar e the pulmonary vessels in the upper lung celaya. Mediastinum: Mediastinal contours appear normal. Heart size is normal. Bones and chest wall: No suspicious bony lesions. Overlying soft tissues appear unremarkable. IMPRESSION: Question of mild vascular congestion no overt failure is seen at this time. Dictated by: Neeraj Calderon M.D. on 02/10/2017 at 17:57 Approved by: Neerja Calderon M.D. on 02/10/2017 at 17:59
--- NOTE | 2017-02-10 20:06 | NUR ---
Arrived from [facility] Arrived via bed and in bed rest til 2129. Left pacer site cdi. Right groin cdi with biocclusive. NO c/o pain at this time. Salmon with dark toshia urine. Saline lock at this time.
--- NOTE | 2017-02-10 20:08 | NUR ---
Pt transferred to [facility] room 2024, VSS, Lt upper chest dressing CDI with no bleeding noted, Rt groin site CDI with no bleeding/hematoma. Report and pt handoff given to Irene BORJA.
--- NOTE | 2017-02-10 20:25 | OP ---
[address] [address] OPERATIVE REPORT PATIENT: JULIA LOPEZ : 1935 MR#: [id number] ADMIT: 02/10/2017 JOB ID: [id number] DATE OF SURGERY: 02/10/2017 SURGEON: Procedure Manager: Gianni Anders MD INSPECTOR CANNED FOOD RECONDITIONING: Michelle Robles PREOPERATIVE DIAGNOSIS(ES): 1. Severe cardiomyopathy with single-chamber primary prevention implantable cardioverter-defibrillator in place. 2. Chronic atrial fibrillation. 3. Inappropriate implantable cardioverter-defibrillator discharges for rapid atrial fibrillation. 4. [place] [employer] Class III heart failure symptoms. POSTOPERATIVE DIAGNOSIS(ES): 1. Severe cardiomyopathy with single-chamber primary prevention implantable cardioverter-defibrillator in place. 2. Chronic atrial fibrillation. 3. Inappropriate implantable cardioverter-defibrillator discharges for rapid atrial fibrillation. 4. [place] [employer] Class III heart failure symptoms. PROCEDURES PERFORMED: 1. Upgrade to a biventricular implantable cardioverter-defibrillator system with placement of a coronary sinus left ventricular lead and placement of a multilead implantable cardioverter-defibrillator generator with explant single lead implantable cardioverter-defibrillator generator. 2. Coronary sinus venogram. 3. Left upper extremity venogram. 4. Fluoroscopy. IMPLANTED DEVICES: 1. [employer] pulse generator, model NH5944-92Z, serial number [id number]. 2. LV lead, [employer] 1458Q, 86 cm, serial number [id number]. CHRONIC DEVICE: [employer] RV lead 7122Q, 65 cm, serial number [id number]. EXPLANTED DEVICE: [employer] pulse generator, model DR8947-81G, serial number [id number]. ANESTHESIA: Bolus dosing of Versed and fentanyl were utilized for appropriate sedation. INDICATION: This patient is a pleasant, 81-year-old man with severe cardiomyopathy, single chamber primary prevention ICD in place, chronic atrial fibrillation, who received several inappropriate ICD discharges and rapid atrial fibrillation. He has advanced heart failure symptomology. After discussion of risks and benefits of upgrade to a biventricular ICD system and AV node ablation, he opted to proceed. PROCEDURAL DESCRIPTION: Following informed consent, the patient was taken to the EP laboratory in a fasting state where he was prepped and draped in usual sterile fashion. The left deltopectoral groove incision was infiltrated with 40 cc of a 50/50 mixture of bupivacaine and lidocaine. A left upper extremity venogram confirmed patency of the left subclavian venous drainage system. He has a known left 1st rib resection and previous extrathoracic axillary vein access for his ICD lead. The deltopectoral incision was infiltrated with a 50/50 mixture of bupivacaine and lidocaine. Once adequate sedation achieved, a 3 cm incision was performed over the prior surgical scar. Dissection was carried to the capsule and the generator freed loose of adhesions. Under venographic guidance, the left axillary vein was cannulated extrathoracically with a micropuncture needle to deploy a 0.035, 3 mm J guidewire. This was quite difficult and ultimately due to stenosis the micropuncture sheath was inserted one-third of the way through which a Glidewire was advanced and maneuvered through the stenosis. A long 9-Amharic sheath was inserted over the Glidewire. Once the bladder and dilator were removed, the [employer] CS delivery sheath was delivered over a Super CS decapolar EP catheter. The EP catheter was used to engage the coronary sinus after which the sheath was advanced in. The coronary sinus venogram with a hand injection was performed delineating a large posterolateral branch. This was chosen as our branch of choice. The sheath was flushed and a quadripolar CS lead was brought into the field and advanced over a Whisper wire. The lead was connected to the PSA and showed excellent sensing threshold and stable impedance with no diaphragmatic stimulation at 5 V of output from the most distal two bipoles. This was chosen as our position of choice. The Whisper wire was removed and in its place was placed a finishing stylet. The short 9-Amharic sheath was slit loose followed by the long CS delivery sheath. The lead maintained its position. Once the position and redundancy of leads were confirmed under multiple fluoroscopic views, the leads were anchored to the prepectoralis fascia using associated anchoring sleeves with Ethibond sutures. The pocket was copiously with antibiotic solution. The new lead was connected to a new biventricular ICD generator. The atrial port was capped. The RV lead was transferred from the old generator to the new generator. The entire system was then replaced into the capsule and secured to the floor of the capsule using 1-0 Ti-Cron suture. The incision was closed with running layers of absorbable suture. The wound was dressed with skin adhesive and a small dressing. At the end of the procedure, sponge and instrument counts were all correct. COMPLICATIONS: None. ESTIMATED BLOOD LOSS: Negligible. DEVICE MEASURED DATA: 1. RV lead 9.6 mV, 490 ohms, 0.75 V at 0.5 msec. 2. RV lead, 550 ohms, 1.25 V at 0.5 msec (through the RV coil). FINAL PROGRAM PARAMETERS: 1. VVIR 80 beats per minute. 2. VF zone 200 beats per minute with ATP during charge followed by maximum . 3. VT zone at 171 beats per minute. ATP followed by shocks. 4. VT monitor zone 150 beats per minute. IMPRESSION: Successful upgrade to a biventricular implantable cardioverter-defibrillator system. PLAN: 1. Stat portable chest x-ray. 2. PA and lateral chest x-ray. 3. IV vancomycin through tomorrow. 4. Proceed with AV node ablation with planned reduction by 10 beats per minute every month until the desired base rate is reached. ATTENDING STATEMENT: Gianni Anders MD, Electrophysiology attending was present for and supervised/performed all aspects of this procedure
[2017-02-10] MEDS: 0.9% Sodium Chloride 1,000 ML IV SCH (20:49)
[2017-02-10] MEDS ORDERED: 0.9% Sodium Chloride 500 ML IV ONE (21:35)
--- NOTE | 2017-02-10 22:00 | PCM.CONPHA ---
Subjective Date of Service: Feb 10, 2017 Reason for Pharmacy Consult: Anticoagulation Management Objective Vital Signs Date Time Temp Pulse Resp B/P Pulse Ox O2 Delivery O2 Flow Rate FiO2 02/10/17 21:14 80 02/10/17 20:45 80 18 98 Nasal Cannula 2.00 02/10/17 20:13 36.4 80 18 149/99 90 Room Air 02/10/17 19:30 80 16 154/84 100 Nasal Cannula 2.00 02/10/17 19:00 80 16 144/91 100 Nasal Cannula 2.00 02/10/17 18:30 80 16 150/83 100 Nasal Cannula 2.00 02/10/17 18:15 80 16 153/94 100 Nasal Cannula 2.00 02/10/17 17:58 80 16 155/96 99 Nasal Cannula 2.00 02/10/17 17:45 80 16 156/99 99 Nasal Cannula 2.00 02/10/17 17:35 80 16 165/112 98 Nasal Cannula 2.00 02/10/17 17:30 80 16 151/102 95 Nasal Cannula 2.00 02/10/17 10:03 36.8 69 17 135/75 99 Room Air Weight (Kilograms): 87.900 Height (Feet): 5 Height (Inches): 7.00 Test 02/10/17 09:30 White Blood Count 7.4th/mm3 (3.8-10.1) Red Blood Count 4.32mil/mm3 (4.40-5.80) Hemoglobin 14.7g/dL (13.8-17.2) Hematocrit 43.6% (41.0-50.0) Mean Corpuscular Volume 100.9fL (81-100) Mean Corpuscular Hemoglobin 34.0pg (27.0-35.0) Mean Corpuscular Hemoglobin Concent 33.7% (32.0-37.0) Red Cell Distribution Width 13.6% (12.3-15.4) Platelet Count 215bil/L (150-400) Neutrophils (%) (Auto) 75.7% (40-74) Lymphocytes (%) (Auto) 15.7% (14-46) Monocytes (%) (Auto) 6.7% (4-12) Eosinophils (%) (Auto) 1.1% (0-5) Basophils (%) (Auto) 0.5% (0-3) Prothrombin Time 11.4sec (8.1-12.5) Prothromb Time International Ratio 1.06ratio Sodium Level 142mEq/L (134-144) Potassium Level 4.1mEq/L (3.5-5.2) Chloride Level 105mEq/L (97-108) Carbon Dioxide Level 23mmol/L (18-29) Blood Urea Nitrogen 21mg/dL (8-27) Creatinine 1.13mg/dL (0.76-1.27) Estimat Glomerular Filtration Rate 67mL/min (>59) Glucose Level 91mg/dL (60-99) Calcium Level 8.9mg/dL (8.5-10.1) Assessment/Plan Assessment/Plan Warfarin management per pharmacy Indication: atrial fibrillation INR goal: 2-3 Home warfarin dose: 5 mg TuThSatSun, 7.5 mg on all other days of the week Pertinent info: - Patient admitted to upgrade cardioverter-defibrillator. - INR today is 1.06. INR is subtherapeutic. Will order bolus dose today. Give warfarin 8 mg PO once this evening. Serial INRs have been ordered. Pharmacy to continue to monitor and dose warfarin daily. Thank you, Vipul Wright Pharmacist Vipul Wright Feb 10, 2017 22:00
[2017-02-10] MEDS: MeTOProlol XL 50 mg ER24 Tablet PO SCH (23:08)
[2017-02-10] MEDS: oxyCODONE-Acetamin 5-325 mg Tablet PO PRN (23:20)
[2017-02-11] VITALS (7 sets, daily range): BP systolic 115–144; BP diastolic 70–95; PULSE 80–82; RESP 14–18; O2SAT 96–98
[2017-02-11] MEDS: oxyCODONE-Acetamin 5-325 mg Tablet PO PRN (00:03)
[2017-02-11 00:46] LABS: APPEARANCE,URINE HAZY (CLEAR,HAZY); COLOR,URINE YELLOW (YELLOW)
[2017-02-11 00:47] LABS: OCCULT BLOOD,URINE LARGE (NEGATIVE); PH,URINE 5.5 (5.0-8.0); UROBILINOGEN,URINE NORMAL (NORMAL)
--- NOTE | 2017-02-11 00:59 | PROCED ---
[address] [address] PROCEDURE NOTE PATIENT: JULIA LOPEZ : 1935 MR#: [id number] ADMIT: 02/10/2017 JOB ID: [id number] DATE OF SERVICE: 02/10/2017 PREOPERATIVE DIAGNOSIS(ES): 1. Chronic atrial fibrillation. 2. History of inappropriate implantable cardioverter-defibrillator discharges for rapid atrial fibrillation despite optimal medical management. 3. Biventricular implantable cardioverter-defibrillator upgrade preceding this procedure. 4. [place] [employer] class III heart failure symptoms. POSTOPERATIVE DIAGNOSIS(ES): 1. Chronic atrial fibrillation. 2. History of inappropriate implantable cardioverter-defibrillator discharges for rapid atrial fibrillation despite optimal medical management. 3. Biventricular implantable cardioverter-defibrillator upgrade preceding this procedure. 4. [place] [employer] class III heart failure symptoms. PROCEDURES PERFORMED: 1. AV junction ablation. 2. Fluoroscopy. SURGEON: Gianni Anders MD LAMP SHADE MAKER: 1. Neeraj Dominguez PA-C 2. Michelle Robles ANESTHESIA: Bolus dosing of Versed and fentanyl were utilized for appropriate level of sedation. INDICATION: The patient is a pleasant, 81-year-old man with severe cardiomyopathy, advanced heart previous symptomatology, chronic atrial fibrillation. Received ICD discharges appropriately for rapid atrial fibrillation. He underwent upgrade to a biventricular ICD system and is here for AV junction ablation after discussion of the risks and benefits. PROCEDURAL DESCRIPTION: Following informed signed consent, the patient was taken to the EP laboratory in fasting nonsedated state where he was prepped and draped in usual sterile fashion. Please note that this procedure was performed twice today. Prior to the biventricular ICD upgrade, AV junction ablation was performed but conduction resumed in the midst of placing his Bi-V ICD system. As such, after finishing his ICD upgrade, he was re-prepped and AV junction ablation was performed yet again. The right inguinal region was infiltrated with 1% lidocaine. Then, using modified Seldinger technique, an 8-Turkish sheath was introduced in the right femoral vein. Then, under fluoroscopic guidance, a J curve irrigated ablation catheter was brought to the field, advanced into the AV junction. Ablation lesions were placed here, ultimately leading to complete heart block. A 20-30 minute waiting period was undertaken during which block was confirmed. The patient's ICD was re-interrogated showing excellent parameters and no escape beats down to 30 beats per minute. The catheter and sheath were removed, monitoring the placement of the ventricular leads. The sheath was removed. Manual pressure was held for hemostasis. The patient was transferred to the [facility] for monitoring and bedrest. COMPLICATIONS: None. ESTIMATED BLOOD LOSS: Negligible. IMPRESSION: Successful atrioventricular junction ablation. PLAN: 1. Recovery in the [facility] and monitoring overnight. 2. Four hours bedrest. 3. Reduce base rate by 10 beats per minute q. month until desired base rate is reached. ATTENDING STATEMENT: Gianni Anders MD, electrophysiology attending, was present for and supervised/performed all aspects of this procedure.
[2017-02-11] MEDS: 0.9% Sodium Chloride 1,000 ML IV SCH (03:11)
[2017-02-11 03:19] LABS: INR 1.06 ratio
[2017-02-11] MEDS ORDERED: Vancomycin Inj 1,000 MG in IV Premix 1 EACH IV ONE (05:00)
--- NOTE | 2017-02-11 05:13 | NUR ---
Pain/Urine/HTN Drowsy but awaken with stimuli and able to answer appropriately. Pt oriented to x3 but forgetful at times. He at times wake up confuse and needs reorientation. Pt c/o shoulder/chest/incision pain. Hypertensive. Mildly anxious. Telemetry vpaced in 80s with pvcs. Ekg done without any changes. Nitroglycerin x3 doses given with some relief for pain and high BP. Percocet given and pt reports pain is getting better. . Pt reports pain relief after dose of Tramadol given this am. Pt reports hx chronic shoulder pain r/t rotator cuff injury as well. He understood after reorientation. Aslmon patent with dark toshia, odorous urine. UA sent per protocol due to age. Pending Urine CX indicated. Left arm sling on all night. Mild swelling around the left chest incision site noted. Ice pack for several hours with effectiveness noted. Addendum: 02/11/17 at 0728 by MARINA PAGE RN No hematoma or bleeding on right groin. Pulses are easily palpable. Left chest dressing cdi.
[2017-02-11] MEDS ORDERED: Pantoprazole 40 mg ER24 Tablet PO SCH (06:30)
[2017-02-11] MEDS ORDERED: Calcium Carbonate (Oyster Shell) 500 mg Tablet PO SCH (08:30)
[2017-02-11] MEDS ORDERED: Fluticasone 0.05% 15 Spray/2 Gm 16 Gm Nasal Spray NASAL SCH (08:30)
--- NOTE | 2017-02-11 08:40 | PCM.DIMED ---
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 Do not lift, push or pull more than 10 lbs with the left arm for one month. Do not extend left elbow high above head for one month. Do not sit in a hot tub, bath tub or pool for one month. ) Call your provider Call your provider for: Fever or Chills, Bleeding, Excessive diarrhea Patient Instructions Follow-up in: 1 week Mid-level Provider (F9): Neeraj Dominguez PA-C Follow-up with Mid-level in: 6 weeks Neeraj Dominguez PA-C Feb 11, 2017 08:40
[2017-02-11] MEDS ORDERED: CEPH500C PO (08:45)
[2017-02-11] MEDS: MeTOProlol XL 50 mg ER24 Tablet PO SCH (08:47)
--- NOTE | 2017-02-11 09:18 | DRSVH ---
PROCEDURE: X-RAY CHEST, TWO VIEWS ([id number]) INDICATIONS: For new lead placement TECHNIQUE: 2 views of the chest were acquired. COMPARISON: [facility], CR, XR CHEST 1VW (PORTABLE), 02/10/2017, 17:28. FINDINGS: Surgical changes and devices: Left apical surgical clips redemonstrated in stable position of left ch est AICD. Multilevel kyphoplasty redemonstrated within the lower thoracic spine. Lungs and pleura: No pleural effusions or pneumothorax. Diminishing edema. Mediastinum: Mediastinal contours are normal. Heart size is enlarged. Bones and chest wall: No suspicious bony abnormalities. Soft tissues appear unremarkable. IMPRESSION: Resolving edema status post placement of left chest AICD which is in expected unchanged p osition. Dictated by: Santosh Hutchison [facility] Interpreted: Cuong Villanueva MD on 02/11/2017 at 8:42 Approved by: Cuong Villanueva M.D. on 02/11/2017 at 9:15
--- NOTE | 2017-02-11 09:35 | DIS ---
[address] [address] DISCHARGE SUMMARY PATIENT: JULIA LOPEZ : 1935 MR#: [id number] ADMIT: 02/10/2017 JOB ID: [id number] DIS: DATE OF ADMISSION: 02/10/2017 DATE OF DISCHARGE: 02/11/2017 REASON FOR ADMISSION: AV node ablation and upgrade of defibrillator. CHIEF COMPLAINT: Atrial fibrillation with rapid heart beats and ICD shocks. BRIEF HISTORY: The patient is a pleasant 81-year-old man with a history of a nonischemic cardiomyopathy, chronic atrial fibrillation, and rapid rates from atrial fibrillation that have been [id number]. In fact, he had an episode of rapid rhythm and received numerous ICD shocks. He was advised of the possibility of ablating the AV node to have absolute rate control and then upgrade his ICD to a biventricular pacing ICD for heart failure management. COURSE IN THE HOSPITAL: The patient was admitted through the [facility] and taken to the labour market economist where he first had the AV node ablation procedure performed and then the defibrillator was upgraded to a biventricular pacing device. During the course of the ICD procedure it was observed that he regained AV shantell conduction. After the pacemaker portion of the procedure was completed we went back to the right side and inserted the ablation catheter in the right femoral vein again and repeated AV node ablation with good results that in the morning showed that he still was in good complete heart block. The ICD rate was lowered down to 30 BPM and he was paced at 30 and had no conduction. In the morning he was sleepy, but felt well and was quite arousable and had been up out of bed without difficulty. The Salmon catheter had been removed, and he was able to the urinate spontaneously. He had no complaints of chest pain. The ICD site is somewhat tender, but there is no significant hematoma and it is closed and dry. He felt well for discharge home. DISPOSITION: The patient was discharged home in good condition with a followup appointment at the [facility] Cardiology office in one week. He was asked not to extend his left elbow high above his shoulder for one month and not to lift push or pull more than 10 pounds for one month. He was also asked not to sit in a hot tub, bathtub, or pool for five days to prevent infection. He will follow his heart healthy and low salt diet and take medications as prescribed. DISCHARGE MEDICATIONS: 1. Cephalexin 500 mg b.i.d. 2. Aspirin 81 mg daily. 3. Calcium carbonate 1200 mg daily. 4. Celebrex 200 mg daily. 5. Digoxin 125 mcg every other day. 6. Furosemide 40 mg daily. 7. Lisinopril 5 mg b.i.d. 8. Loperamide 4 mg as needed for diarrhea. 9. Metoprolol succinate 50 mg b.i.d. 10. Multivitamin one daily. 11. Nitroglycerin 0.4 mg sublingual q.5 minutes p.r.n. pain. 12. Omeprazole 40 mg daily. 13. Oxycodone-acetaminophen 5-325 mg, 1/2 to 1 tablet p.o. q.6 hours p.r.n. pain. 14. Potassium chloride 10 mEq b.i.d. 15. Mirapex 0.5 mg at bedtime. 16. Ranitidine 300 mg daily. 17. Spironolactone 25 mg daily. 18. Tamsulosin 0.4 mg daily. 19. Tramadol 50 mg q.4 hours p.r.n. pain. 20. Nasacort 1 spray in nostrils daily. 21. Warfarin 5 mg alternating with 7.5 mg as directed by his anticoagulation clinic. FINAL DIAGNOSES: 1. Chronic atrial fibrillation with rapid ventricular response rates. 2. Nonischemic cardiomyopathy. 3. Chronic systolic and diastolic heart failure symptoms.
--- NOTE | 2017-02-11 12:10 | NUR ---
Discharge Pt was educated on current condition and future care. Pt was provided with educational discharge packet as well as additional care instructions from the MD. IVs were removed. Pt was already DCd from tele. Pt and this RN both signed final page of packet. Pt was escorted down to vehicle by a staff member. Pt voided X2.
== END 2017-02-11 12:10 | disposition home or self-care (01) ==
LOC: SOUO 00:24 → EDSTATUS 15:07 → UNDOFXREFACCOM 17:11 → PCC 19:53 → SOUO 19:53 → PCC 02-11 12:10 → SOUO 02-11 12:10
PROVIDERS: ATTEND Internal Medicine Cardiovascular Disease
DX: I48.2 Chronic atrial fibrillation (principal); T82.198A Other mechanical complication of other cardiac electronic device, initial encounter; Y71.1 Therapeutic (nonsurgical) and rehabilitative cardiovascular devices associated with adverse incidents; I42.0 Dilated cardiomyopathy; I50.42 Chronic combined systolic (congestive) and diastolic (congestive) heart failure; Z87.891 Personal history of nicotine dependence; Z79.82 Long term (current) use of aspirin; G47.33 Obstructive sleep apnea (adult) (pediatric); E78.5 Hyperlipidemia, unspecified; I10 Essential (primary) hypertension; I34.0 Nonrheumatic mitral (valve) insufficiency; Z79.01 Long term (current) use of anticoagulants
CPT/HCPCS: 33225; 33264; 36415; 71010; 71020; 80048; 81000; 85025; 85610; 87086; 93005; 93650; 99152; 99153; C1733; C1769; C1882; C1892; C1900; C2630; J1644; J2060; J2250; J3010; J3370; J7030; J7050; Q9967